=== PATIENT | male | born 1970 | race Caucasian/White ===

== ENCOUNTER → 2016-04-25 | Outpatient (CLI) | payer MEDICARE, MEDICAID | END | disposition home or self-care (01) | LOC: LAB.O 12:10 | PROVIDERS: ATTEND Internal Medicine | DX: N18.3 Chronic kidney disease, stage 3 (moderate) (principal); D50.9 Iron deficiency anemia, unspecified; E21.1 Secondary hyperparathyroidism, not elsewhere classified ==

== ENCOUNTER → 2016-07-12 | Outpatient (CLI) | payer MEDICARE, MEDICAID | END | disposition home or self-care (01) | LOC: LAB.O 09:10 | PROVIDERS: ATTEND Surgery Vascular Surgery | DX: E83.42 Hypomagnesemia (principal) ==

== ENCOUNTER → 2016-08-02 | Outpatient (CLI) | payer MEDICARE, MEDICAID | END | disposition home or self-care (01) | LOC: LAB.O 09:37 | PROVIDERS: ATTEND Internal Medicine | DX: N18.3 Chronic kidney disease, stage 3 (moderate) (principal); D50.9 Iron deficiency anemia, unspecified ==

== ENCOUNTER 2016-08-24 10:40 | Observation (INO) | payer MEDICARE, MEDICAID ==
[2016-08-24] MEDS ORDERED: MAGNESIUM SULFATE PREMIX 2GM 2 GM in PREMIX BAG 1 BAG IVPB ONE ×3 (12:25→21:52)
[2016-08-24] MEDS ORDERED: MAGNESIUM SULFATE PREMIX 2GM 50 ML IVPB ONE ×3 (12:42→22:10)
--- NOTE | 2016-08-24 13:25 | ED.PDOC ---
History of Present Illness - General Chief Complaint: General Stated Complaint: low magnesium and body cramps Time Seen by Provider: 08/24/16 11:00 Source: patient Exam Limitations: no limitations - History of Present Illness Initial Comments: The patient is a 46-year-old male presenting to the emergency room secondary toworsening muscle cramps over the last week. The patient states that this feels like the last time his calcium and magnesium were low. He has long- standing chronic renal insufficiency secondary to malignant hypertension. He is followed by Dr. Wilson and nephrology. He takes calcitriol, calcium acetate, and magnesium oxide normally. No palpitations. No chest pain. He is having roving muscle spasms. No syncope or near syncope. He is feeling a little bit weak. No vision changes. Timing/Duration: 1 week Severity: moderate Improving Factors: nothing Worsening Factors: nothing Associated Symptoms: loss of appetite, malaise, weakness Allergies/Adverse Reactions: Allergies Penicillins Allergy (Mild, Verified 08/24/16 11:09) Nitroglycerin IV Adverse Reaction (Severe, Uncoded 08/24/16 11:09) ceizure Home Medications: Ambulatory Orders Bumetanide 1 mg PO DAILY 02/10/15 Calcitriol [Rocaltrol] 0.25 mcg PO DAILY 02/10/15 Calcium Acetate (Phosphate Bin [Calphron] 667 mg PO TID 02/10/15 Carvedilol [Coreg] 25 mg PO BID 02/10/15 Doxepin HCl 50 mg PO BEDTIME 02/10/15 Esomeprazole Magnesium [Nexium] 40 mg PO DAILY 02/10/15 Fenofibrate Micronized [Lofibra] 134 mg PO DAILY 02/10/15 Indapamide 2.5 mg PO DAILY 02/10/15 Isosorbide Dinitrate [Dilatrate Sr] 40 mg PO TID 02/10/15 Magnesium Oxide 400 mg PO BID 02/10/15 Minoxidil [Loniten] 5 mg PO BID 02/10/15 Pravastatin Sodium [Pravachol] 80 mg PO BEDTIME 02/10/15 Sitagliptin Phosphate [Januvia] 100 mg PO DAILY 02/10/15 amLODIPine BESYLATE [Norvasc] 5 mg PO DAILY 02/10/15 hydrALAZINE HCl [(None)] 50 mg PO BID 02/10/15 Sulfa/Trimeth 800/160 (Ds) Tab [Bactrim DS Tab] 1 ea PO BID #14 tab 03/02/15 Ciprofloxacin-Ciprofloxacin Hc [Ciprofloxacin ER 500 mg] 1 tab PO BID #20 tab Ketorolac Tromethamine [Toradol Tabs] 10 mg PO Q6HRS PRN #20 tab 04/27/15 metroNIDAZOLE [Flagyl] 500 mg PO Q6HR #28 tab 04/27/15 Acetaminophen W/ Codeine [Tylenol w/Codeine 300-30 mg] 1 tab PO Q4HR PRN #30 tab 10/26/15 Review of Systems - Review of Systems Constitutional: States: malaise, weakness EENTM: States: no symptoms reported Respiratory: States: no symptoms reported Cardiology: States: no symptoms reported Gastrointestinal/Abdominal: States: nausea Genitourinary: States: no symptoms reported Musculoskeletal: States: muscle pain Skin: States: no symptoms reported Neurological: States: no symptoms reported, weakness - mild generalized Endocrine: States: no symptoms reported All other Systems: No Change from Baseline Past Medical History (General) - Patient Medical History Hx Seizures: Yes Hx Stroke: - unsure if has had one or not. Hx Dementia: No Hx Asthma: Yes Hx of COPD: No Hx Cardiac Disorders: Yes Hx Congestive Heart Failure: Yes Hx Pacemaker: No Hx Hypertension: Yes - Malignant HTN Hx Thyroid Disease: No Hx Diabetes: Yes - type 2 Hx Gastroesophageal Reflux: Yes Hx Renal Disease: Yes - failure Hx Cancer: No Hx of HIV: No Hx Hepatitis C: No Hx MRSA: No - Vaccination History Hx Tetanus, Diphtheria Vaccination: Yes Hx Influenza Vaccination: Yes Hx Pneumococcal Vaccination: Yes - 2015 - Social History Hx Tobacco Use: Yes Hx Alcohol Use: Yes Hx Substance Use: No Hx Substance Use Treatment: No Hx Depression: No Hx Physical Abuse: No Hx Emotional Abuse: No - Activities of Daily Living Hospice Agency (if applicable):: None - Female History Patient is a Female of Child Bearing Age (10 -59 yrs old): No Patient : No Family Medical History - Family History Father Living Status: Still Living Hx Family Hypertension: Yes Hx Family Diabetes: Yes Mother Living Status: Still Living Hx Family Hypertension: Yes Physical Exam - Physical Exam General Appearance: Alert, Comfortable, No apparent distress Eye Exam: bilateral normal Ears, Nose, Throat: hearing grossly normal, normal ENT inspection, normal pharynx Neck: full range of motion, supple Respiratory: chest non-tender, lungs clear, normal breath sounds, no respiratory distress, no accessory muscle use Cardiovascular/Chest: normal peripheral pulses, regular rate, rhythm, no edema Peripheral Pulses: radial,right: 2+, radial,left: 2+, dorsalis pedis,right: 2+, dorsalis pedis,left: 2+ Gastrointestinal/Abdominal: non tender, soft Rectal Exam: deferred Back Exam: normal inspection, no CVA tenderness, no vertebral tenderness Extremity: normal range of motion, non-tender, normal inspection, no pedal edema , normal capillary refill 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 I have discussed the patient with Dr. Adan. He is in agreement with replacing the magnesium first. As the patient is not having any evidence of cardiac arrhythmia, IV calcium is not recommended at this time. Continue calcium acetate. He has recommended calcitriol 2mcg twice a dayfor 3 days. The patient will be admitted for cardiac monitoring witha repeat of labs in the morning. He will likely require another dosing of magnesium as well in the morning. Again no evidence of arrhythmia at this time. - Results/Orders Results/Orders: 08/24/16 11:00 UA [URINALYSIS] Stat 08/24/16 13:13 Magnesium Sulfate Premix 2Gm 2 gm Premix Bag 1 bag IVPB ONCE 08/24/16 13:15 EKG Assessment ONCE EKG STAT 08/25/16 13:14 Calcitriol [Rocaltrol] 2 mcg PO ONCE ONE 08/25/16 13:15 EKG STAT Laboratory Results - last 24 hr 08/24/16 08/24/16 11:15 11:15 WBC 8.0 RBC 4.42 L Hgb 13.4 L Hct 40.1 L MCV 90.7 MCH 30.3 MCHC 33.3 RDW 12.7 Plt Count 183 MPV 8.1 Absolute Neuts (auto) 4.90 Absolute Lymphs (auto) 2.20 Absolute Monos (auto) 0.60 Absolute Eos (auto) 0.20 Absolute Basos (auto) 0.10 Neutrophils % 60.8 Lymphocytes % 27.7 Monocytes % 7.4 Eosinophils % 2.9 Basophils % 1.2 Sodium 138 Potassium 4.1 Chloride 102 Carbon Dioxide 24 Anion Gap 16.1 BUN 51 H Creatinine 3.60 H BUN/Creatinine Ratio 14.2 Random Glucose 170 H Serum Osmolality 293.3 Calcium 6.7 L* Magnesium < 0.8 L* Total Bilirubin 0.5 AST 22 ALT 16 Alkaline Phosphatase 47 Creatine Kinase 327 H* CK-MB (CK-2) 3.9 CK-MB (CK-2) % Not Reportable Troponin I < 0.02 Serum Total Protein 6.9 Albumin 3.7 Globulin 3.2 Albumin/Globulin Ratio 1.2 TSH 1.93 Departure - Departure Clinical Impression: Hypomagnesemia, Hypocalcemia Chronic renal failure Qualifiers: Chronic kidney disease stage: stage 4 (severe) Qualified Code(s): N18.4 - Chronic kidney disease, stage 4 (severe) Disposition: Admit Patient Home Medications: Ambulatory Orders Bumetanide 1 mg PO DAILY 02/10/15 Calcitriol [Rocaltrol] 0.25 mcg PO DAILY 02/10/15 Calcium Acetate (Phosphate Bin [Calphron] 667 mg PO TID 02/10/15 Carvedilol [Coreg] 25 mg PO BID 02/10/15 Doxepin HCl 50 mg PO BEDTIME 02/10/15 Esomeprazole Magnesium [Nexium] 40 mg PO DAILY 02/10/15 Fenofibrate Micronized [Lofibra] 134 mg PO DAILY 02/10/15 Indapamide 2.5 mg PO DAILY 02/10/15 Isosorbide Dinitrate [Dilatrate Sr] 40 mg PO TID 02/10/15 Magnesium Oxide 400 mg PO BID 02/10/15 Minoxidil [Loniten] 5 mg PO BID 02/10/15 Pravastatin Sodium [Pravachol] 80 mg PO BEDTIME 02/10/15 Sitagliptin Phosphate [Januvia] 100 mg PO DAILY 02/10/15 amLODIPine BESYLATE [Norvasc] 5 mg PO DAILY 02/10/15 hydrALAZINE HCl [(None)] 50 mg PO BID 02/10/15 Sulfa/Trimeth 800/160 (Ds) Tab [Bactrim DS Tab] 1 ea PO BID #14 tab 03/02/15 Ciprofloxacin-Ciprofloxacin Hc [Ciprofloxacin ER 500 mg] 1 tab PO BID #20 tab Ketorolac Tromethamine [Toradol Tabs] 10 mg PO Q6HRS PRN #20 tab 04/27/15 metroNIDAZOLE [Flagyl] 500 mg PO Q6HR #28 tab 04/27/15 Acetaminophen W/ Codeine [Tylenol w/Codeine 300-30 mg] 1 tab PO Q4HR PRN #30 tab 10/26/15 Decision To Admit - Decistion To Admit Decision to Admit Reason: Medical Nature Decision to Admit Date: 08/24/16 Decision to Admit Time: 13:28
[2016-08-24] MEDS ORDERED: CALCITRIOL 0.25 MCG CAP PO ONE (13:49)
--- NOTE | 2016-08-24 14:38 | HP ---
SUPERVISING PHYSICIAN: Wilfred Dyson M.D. CHIEF COMPLAINT: Muscle cramping all over. HISTORY OF PRESENT ILLNESS: This is a 46 year-old male patient with a significant history of chronic renal failure and hypocalcemia. He has had worsening muscle cramps over the last week at the point that he said he felt like he was cramping all over. In fact, his tongue was cramping and he felt like "his whole insides were cramping." In the Emergency Room, his magnesium was less than 0.8 and his calcium was 6.7. He was slightly anemic with an H&H of 13.4 and 40.1. Creatinine kinase was 327. Glucose was 170, BUN 51, creatinine 3.60. His normal creatinine is about 2.8 to 2.9. He was given 4 grams of magnesium in the Emergency Room. He usually sees Dr. Bryan Wilson, special events planner in [place] who is out of [facility]. Dr. Seun Adan was called and he recommended that he receive 4 grams of magnesium, recheck his magnesium level later tonight as well as giving him Calcitrol 2 mcg b.i.d. times 3 days. The Calcitrol was started in the Emergency Room. He was also given some fluids and I was called for admission. PAST MEDICAL HISTORY: 1. Diabetes mellitus type 2. 2. Congestive heart failure of unknown etiology. 3. Cardiomyopathy. 4. Chronic renal failure. 5. Hydrocephalus from an injury that was treated with Diamox. 6. Anemia of chronic disease. 7. Hypertension. 8. Chronic obstructive pulmonary disease. 9. Gastroesophageal reflux disease. PAST SURGICAL HISTORY: 1. Surgery for the hydrocephalus many years ago. 2. Abdominal surgery when he was a baby due to pyloric stenosis. 3. Right elbow surgery. 4. Tonsillectomy. 5. Fistula to his left arm for dialysis. HOME MEDICATIONS: Per the EMR and awaiting verification. ALLERGIES: PENICILLIN AND NITROGLYCERIN IN THE IV FORM. SOCIAL HISTORY: He is . He has 2 daughters. He lives at [facility]. He is disabled due to his kidney disease. He smoked for over 30 years but quit in 2013. He also had significant ethanol consumption, but he also quit drinking alcoholic beverages in 2013. He denies any illicit drug use. REVIEW OF SYSTEMS: Negative except as per History of Present Illness. PHYSICAL EXAMINATION: VITAL SIGNS: Temperature 96.7, pulse rate 97, blood pressure 149/100, respiratory rate 20, O2 sat is 97%. GENERAL: This is a 46 year-old male patient who is sitting up in his hospital bed. He is in no acute distress. HEENT: Normocephalic and atraumatic. Pupils are equal and reactive. Oropharynx is clear. NECK: Supple without mass. CHEST: Clear to auscultation bilaterally. There is equal rise and fall of the chest with inspiration and expiration. CARDIOVASCULAR: Regular rate and rhythm. ABDOMEN: Soft, nondistended, non-tender. Bowel sounds are positive. EXTREMITIES: No cyanosis, clubbing or edema. There is an AV fistula to the left forearm with a palpable thrill. NEUROLOGIC: He is awake, alert and oriented times three. LABORATORY: Labs and films are as per the History of Present Illness. ASSESSMENT: 1. Severe hypocalcemia. 2. Severe hypomagnesemia. 3. Acute on chronic renal failure. 4. Diabetes mellitus type 2. 5. Congestive heart failure of unknown etiology. No present echocardiogram for review. He is followed by Dr. Hankins in [place]. 6. Chronic obstructive pulmonary disease. 7. Cardiomyopathy. 8. Anemia of chronic disease. PLAN: We will admit the patient to the hospital. I will repeat his lab tonight at 9:00 PM to see if he needs further magnesium replacement. Will continue the Calcitrol as recommended by Dr. Adan 2 mcg p.o. b.i.d. times 3 doses. I put him on sliding scale insulin. Will restart his home medications. We are giving him Protonix for ulcer prophylaxis as well as Lovenox for DVT prophylaxis. Will do routine labs in the morning. Will monitor his electrolytes closely. He will be on the newcomer hostess. We will continue to monitor him closely and followup as needed. Dr. Dyson is the collaborating physician and available for consultation. #[id number]
[2016-08-24] MEDS: ISOSORBIDE DINITRATE 40 MG PO SCH ×2 (15:00→21:23)
[2016-08-24] MEDS ORDERED: IV SET AND CAP CHANGE INJ INJ SCH (17:00)
[2016-08-24] MEDS ORDERED: SODIUM CHLORIDE 0.9% (FLUSH) 10 ML SYG IV PRN (17:00)
[2016-08-24] MEDS ORDERED: ONDANSETRON INJ 4 MG/2 ML VIAL IV PRN (17:02)
[2016-08-24] MEDS ORDERED: ALBUTEROL SULFATE 2.5 MG/3 ML VIAL NEB PRN (17:02)
[2016-08-24] MEDS ORDERED: DEXTROSE 50% 25 GM/50 ML SYG IV PRN (17:06)
[2016-08-24] MEDS ORDERED: GLUCAGON INJ 1 MG VIAL SUBCU PRN (17:06)
[2016-08-24] MEDS ORDERED: ENOXAPARIN SODIUM 30 MG/0.3 ML SYG SUBCU SCH (17:30)
[2016-08-24] MEDS ORDERED: PANTOPRAZOLE SODIUM IV 40 MG VIAL IV SCH (17:30)
[2016-08-24] MEDS ORDERED: MAGNESIUM OXIDE 400 MG TAB ONE (19:58)
[2016-08-24] MEDS ORDERED: BUMETANIDE TAB 2 MG TAB ONE (19:58)
[2016-08-24] MEDS ORDERED: CARVEDILOL 12.5 MG TAB ONE (19:58)
[2016-08-24] MEDS ORDERED: VALSARTAN 80 MG TAB ONE (19:58)
[2016-08-24] MEDS ORDERED: ISOSORBIDE MONONITRATE (ISMO) 20 MG TAB ONE (19:59)
[2016-08-24] MEDS ORDERED: PRAVASTATIN SODIUM 20 MG TAB ONE (19:59)
[2016-08-24] MEDS: ALBUTEROL SULFATE 2.5 MG/3 ML VIAL NEB SCH (20:23)
[2016-08-24] MEDS: CALCITRIOL 0.25 MCG CAP PO SCH (20:36)
[2016-08-24] MEDS: SODIUM CHLORIDE 0.9% (FLUSH) 10 ML SYG IV SCH (20:39)
[2016-08-24] MEDS: CALCIUM ACETATE PO SCH (20:41)
[2016-08-24] MEDS ORDERED: NON-FORMULARY MEDICATION 1 EA MIS (Valsartan [Valsartan] 160 MG) PO SCH (21:00)
[2016-08-24] MEDS ORDERED: NON-FORMULARY MEDICATION 1 EA MIS (Carvedilol [Coreg] 25 MG) PO SCH (21:00)
[2016-08-24] MEDS ORDERED: MAGNESIUM OXIDE 400 MG PO SCH (21:00)
[2016-08-24] MEDS ORDERED: BUMETANIDE 2 MG PO SCH (21:00)
[2016-08-24] MEDS ORDERED: PRAVASTATIN SODIUM 80 MG PO SCH (21:00)
[2016-08-24] MEDS: INSULIN LISPRO 100 UNITS/ML PEN SUBCU SCH (21:44)
[2016-08-24] MEDS ORDERED: ALPRAZolam 0.5 MG TAB PO PRN (22:25)
[2016-08-25] MEDS ORDERED: PANTOPRAZOLE SODIUM IV 40 MG VIAL ONE (04:44)
[2016-08-25] MEDS ORDERED: PANTOPRAZOLE SODIUM IV 40 MG VIAL IV SCH (06:30)
[2016-08-25] MEDS: INSULIN LISPRO 100 UNITS/ML PEN SUBCU SCH ×3 (07:17→16:45)
--- NOTE | 2016-08-25 07:37 | RAD ---
Procedure: XR CHEST 2 VIEWS Exam Date: 08/25/2016 Ordering Provider: STEPHANIE DEL ROSARIO Clinical Indication: copd Comparison: 02/10/2015 Findings: Cardiac silhouette: Normal Pulmonary vasculature : Normal Mediastinal contour: Normal Aortic contour: Normal Focal lung consolidation: None Pleural effusion: None Pneumothorax: None Acute bony or soft tissue abnormality: None. Remote left-sided rib fractures. Impression: 1. No acute abnormalities in the chest. Electronically signed by: Bill Church MD 08/25/2016 7:36 AM CDT
[2016-08-25] MEDS ORDERED: BUMETANIDE TAB 2 MG TAB ONE (07:43)
[2016-08-25] MEDS ORDERED: SPIRONOLACTONE 25 MG TAB ONE (07:43)
[2016-08-25] MEDS ORDERED: CARVEDILOL 12.5 MG TAB ONE (07:46)
[2016-08-25] MEDS ORDERED: MAGNESIUM OXIDE 400 MG TAB ONE (07:47)
[2016-08-25] MEDS ORDERED: ENOXAPARIN SODIUM 30 MG/0.3 ML SYG SUBCU ONE (07:47)
[2016-08-25] MEDS ORDERED: amLODIPine BESYLATE 5 MG TAB ONE (07:47)
[2016-08-25] MEDS ORDERED: ISOSORBIDE MONONITRATE (ISMO) 20 MG TAB ONE (07:47)
[2016-08-25] MEDS ORDERED: VALSARTAN 80 MG TAB ONE (07:47)
[2016-08-25] MEDS: ALBUTEROL SULFATE 2.5 MG/3 ML VIAL NEB SCH ×2 (08:12→14:05)
[2016-08-25] MEDS: CALCIUM ACETATE PO SCH ×2 (08:54→15:00)
[2016-08-25] MEDS: ISOSORBIDE DINITRATE 40 MG PO SCH (08:56)
[2016-08-25] MEDS: MAGNESIUM OXIDE 400 MG TAB PO SCH ×2 (08:57→15:00)
[2016-08-25] MEDS: CALCITRIOL 0.25 MCG CAP PO SCH (08:58)
[2016-08-25] MEDS: SODIUM CHLORIDE 0.9% (FLUSH) 10 ML SYG IV SCH (08:59)
[2016-08-25] MEDS ORDERED: ENOXAPARIN SODIUM 30 MG/0.3 ML SYG SUBCU SCH (09:00)
[2016-08-25] MEDS ORDERED: SPIRONOLACTONE 25 MG TAB PO SCH (09:00)
[2016-08-25] MEDS ORDERED: amLODIPine BESYLATE 5 MG TAB PO SCH (09:00)
[2016-08-25] MEDS ORDERED: CARVEDILOL 12.5 MG TAB PO SCH (09:00)
[2016-08-25] MEDS ORDERED: BUMETANIDE TAB 2 MG TAB PO SCH (09:00)
[2016-08-25] MEDS ORDERED: FLUTICASONE/SALMETEROL 500/50 INH INH SCH (09:00)
[2016-08-25] MEDS ORDERED: VALSARTAN 80 MG TAB PO SCH (09:00)
--- NOTE | 2016-08-25 11:22 | PN ---
DATE: 08/25/16 SUPERVISING PHYSICIAN: Wilfred Dyson M.D. SUBJECTIVE: The patient is sitting up in bed watching television. He has no complaints of any shortness of breath, chest pain, muscle cramps, abdominal pain , nausea or vomiting. Actually states he feels "so much better than yesterday. " OBJECTIVE: He is afebrile. Heart rate is 71, blood pressure 142/89, respiratory rate 18, O2 sat is 96% on room air. RESPIRATORY: Clear to auscultation bilaterally. CARDIAC: Regular rate and rhythm. ABDOMEN: Soft, nondistended, non-tender. Bowel sounds are positive. EXTREMITIES: No cyanosis , clubbing or edema. NEUROLOGIC: He is awake, alert and oriented times three. LABORATORY: Sodium 139, potassium 4, chloride 104, carbon dioxide 23, BUN 48, creatinine 3.24 down from 3.52 yesterday. Glucose has been running between 112 to 170. Phosphorus is 5, magnesium last night was 1.5 and today is 1.8. Hemoglobin and hematocrit are stable at 13.1 and 39.2. Yesterday evening his calcium was 6.5 and today is 7.1. Chest x-ray shows no acute abnormalities in the chest. All other labs and films have been reviewed via the EMR. ASSESSMENT: 1. Severe hypocalcemia presently on high dose of Calcitrol per Dr. Adan's recommendations and slowly improving. 2. Severe hypomagnesemia requiring 6 mg of IV magnesium that has now normalized to 1.8. 3. Acute on chronic renal failure that is slowly improving. 4. Diabetes mellitus type 2. 5. Congestive heart failure of unknown etiology with no present echocardiogram for review. He is being followed by Dr. Hankins in [place]. 6. Chronic obstructive pulmonary disease. 7. Cardiomyopathy. 8. Anemia of chronic disease. PLAN: We will continue right supportive care. Last night when his calcium actually went down, I spoke with Dr. Adan via telephone and he said to continue his present dosing of Calcitrol which is 2 mcg b.i.d. for 3 days which his evening dose will be tomorrow afternoon. He recommended that we continue to monitor it, that it would come up slowly. We gave him 2 grams of magnesium last night, so his magnesium has normalized and his creatinine has improved. I have repeated lab for in the morning. If the patient's calcium continues to improve, he can be discharged tomorrow. 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 I will try to get him an appointment with Dr. Wilson toward the end of next week. He will also need to do lab on an outpatient level to check his CMP, phosphorus and magnesium, and he will need to do that about or Friday of this week. Otherwise we will continue to watch him closely and treat as medically indicated. Dr. Dyson is the supervising physician and available for consultation. #[id number] ALZP
[2016-08-25] MEDS ORDERED: MAGNESIUM SULFATE PREMIX 2GM 0 ML IVPB ONE (12:05)
[2016-08-25] MEDS ORDERED: CALCITRIOL 0.25 MCG CAP PO ONE (13:14)
[2016-08-25 17:31] VITALS: BP 138/90; TEMP 98; O2SAT 95
[2016-08-25] MEDS ORDERED: MAGNESIUM SULFATE PREMIX 2GM 2 GM in PREMIX BAG 1 BAG IVPB ONE (17:50)
[2016-08-25] MEDS ORDERED: MAGNESIUM SULFATE PREMIX 2GM 50 ML IVPB ONE (19:42)
[2016-08-25] MEDS ORDERED: CALCITRIOL 0.25 MCG CAP PO SCH (21:00)
[2016-08-25] MEDS ORDERED: PRAVASTATIN SODIUM 20 MG TAB PO SCH (21:00)
[2016-08-26] MEDS ORDERED: PANTOPRAZOLE SODIUM TAB 40 MG PO SCH (06:30)
--- NOTE | 2016-08-30 13:49 | DS ---
SUPERVISING PHYSICIAN: Wilfred Dyson MD DISCHARGE DIAGNOSIS: 1. Severe hypocalcemia presently on high dose of Calcitrol per Dr. Adan's recommendation, improving. 2. Severe hypomagnesemia requiring 6 mg of IV magnesium, now normalized. 3. Acute on chronic renal failure, slowly improving. 4. Diabetes mellitus, type 2. 5. Congestive heart failure of unknown etiology presently being followed by Dr. Hankins in [place]. 6. Chronic obstructive pulmonary disease. 7. Cardiomyopathy. 8. Anemia of chronic disease. HISTORY OF PRESENT ILLNESS: This is a 46-year-old, male patient who presented to the Emergency Room on the date of admission with severe muscle cramps over his entire body that had been going on for about a week. He has a significant history of renal failure and hypocalcemia. He is actually on daily Calcitrol. In the Emergency Room, his magnesium was less than 0.8 and his calcium was 6.7. He was slightly anemic with an hemoglobin and hematocrit of 13.4 and 40.1. Creatinine kinase was 327. Glucose was 170, BUN 51, creatinine 3.6. His normal creatinine is about 2.8 to 2.9. He was given 4 grams of magnesium in the Emergency Room. His banana carrier is Dr. Bryan Wilson, but he was out of town, so Dr. Seun Adan, banana carrier in [place], was contacted and he recommended that he receive 4 grams of magnesium, recheck his magnesium level and give Calcitrol 2 mcg b.i.d. times 3 days, then to resume his previously dosed Calcitrol. The Calcitrol was started in the Emergency Room and he was admitted to the hospital. HOSPITAL COURSE: After receiving his magnesium and initial 3 doses of Calcitrol , his symptoms improved although his followup lab showed that his calcium dropped to 6.5 and his second magnesium was 1.5. He was given an additional dose of 2 grams of magnesium and this morning, magnesium was 1.8. His calcium this morning had improved to 7.1. Initially, we had planned to monitor it over the next 48 hours, but his symptoms improved so much that he requested that he go home. I talked to the patient at length about leaving the hospital and that his electrolytes were so out of balance that he needed close monitoring. His daughter was home from [facility] and she was leaving later this evening. The patient agreed to have his electrolytes checked on 08/29/06 or 08/30/16 for close followup and he also has an appointment with Dr. Wilson early next week. Reluctantly, I agreed to discharge as long as he has close followup with his electrolytes as well as he is to return to the hospital if he has any further symptoms. Prior to discharge, his magnesium was 1.7 and he received 2 more grams of magnesium. His calcium had improved to 7.8 and on discharge, he was actually given enough Calcitrol to complete the 2 grams b.i.d. for 3 total days. DISCHARGE PLAN: The patient is to be discharged home in stable condition. He is to resume his previous medications with the exception of the dosing of Calcitrol as stated previously. He is to have his electrolytes plus magnesium checked on 08/29/16 or 08/30/16 and was given an order to come to the hospital to do so. He is to followup with Dr. Wilson next week and to return to the hospital with any further complaints or problems. He is to resume his previous diet and previous activity. DISCHARGE MEDICATIONS: 1. Nexium. 2. Pravachol. 3. Magnesium oxide. 4. Amlodipine. 5. Calcium acetate. 6. Calcitrol. 7. Bumex. 8. Carvedilol. 9. Fluticasone salmeterol. 10. Albuterol. 11. Valsartan. 12. Fluticasone nasal 13. Spironolactone. 14. Alprazolam. 15. Isosorbide. 16. Hydralazine. 17. Colchicine. 18. Calcitrol. 19. Uloric. Dr. Dyson is the collaborating physician and available for consultation. #[id number] [facility]
== END 2016-08-25 20:55 | disposition home or self-care (01) ==
LOC: ER 10:40 → MS 11:00 → UNDOADMOB 14:33 → MS 14:33 → UNDOADMOB 14:34 → MS 14:34 → INTOOBSV 14:34 → MS 08-25 18:00 → UNDOADMOB 08-25 18:00 → UNDODISOB 08-25 20:55
PROVIDERS: ADMIT Nurse Practitioner Acute Care; ATTEND Nurse Practitioner Acute Care
DX: E83.51 Hypocalcemia (principal); E83.42 Hypomagnesemia; N17.9 Acute kidney failure, unspecified; I13.0 Hypertensive heart and chronic kidney disease with heart failure and stage 1 through stage 4 chronic kidney disease, or unspecified chronic kidney disease; N18.4 Chronic kidney disease, stage 4 (severe); E11.22 Type 2 diabetes mellitus with diabetic chronic kidney disease; I50.9 Heart failure, unspecified; J44.9 Chronic obstructive pulmonary disease, unspecified; I42.9 Cardiomyopathy, unspecified; D63.1 Anemia in chronic kidney disease; G91.3 Post-traumatic hydrocephalus, unspecified; K21.9 Gastro-esophageal reflux disease without esophagitis; Z79.84 Long term (current) use of oral hypoglycemic drugs; Z79.899 Other long term (current) drug therapy; Z88.0 Allergy status to penicillin; Z88.8 Allergy status to other drugs, medicaments and biological substances; Z87.891 Personal history of nicotine dependence; Z82.49 Family history of ischemic heart disease and other diseases of the circulatory system; Z83.3 Family history of diabetes mellitus
CPT/HCPCS: 36415 ×7; 36416 ×7; 71020; 80053 ×4; 81001; 82550 ×2; 82553; 82948 ×4; 83735 ×4; 84100 ×2; 84443; 84484; 85025 ×2; 93005; 94640 ×3; 94664; 94760 ×6; 96365; 96366 ×3; 96372 ×2; 96375; 96376; 99284; G0378; J1650 ×2; J3475 ×4; J7611 ×3

== ENCOUNTER → 2017-05-09 | Outpatient (CLI) | payer MEDICARE, MEDICAID | LOC: LAB.O 12:29 | PROVIDERS: ATTEND Internal Medicine | DX: N18.3 Chronic kidney disease, stage 3 (moderate) (principal) ==

== ENCOUNTER → 2017-09-23 | Outpatient (CLI) | payer MEDICARE, MEDICAID | LOC: LAB.O 10:28 | PROVIDERS: ATTEND Internal Medicine | DX: N18.4 Chronic kidney disease, stage 4 (severe) (principal) ==

== ENCOUNTER → 2018-03-05 | Outpatient (CLI) | payer MEDICARE, MEDICAID | LOC: LAB.O 11:10 | PROVIDERS: ATTEND Internal Medicine | DX: N18.3 Chronic kidney disease, stage 3 (moderate) (principal); D50.9 Iron deficiency anemia, unspecified; E11.22 Type 2 diabetes mellitus with diabetic chronic kidney disease; E21.1 Secondary hyperparathyroidism, not elsewhere classified; E78.00 Pure hypercholesterolemia, unspecified ==

== ENCOUNTER → 2018-03-17 | Outpatient (CLI) | payer MEDICARE, MEDICAID | LOC: LAB.O 11:54 | PROVIDERS: ATTEND Family Medicine | DX: E78.2 Mixed hyperlipidemia (principal); E11.9 Type 2 diabetes mellitus without complications; I10 Essential (primary) hypertension ==

== ENCOUNTER → 2018-06-18 | Outpatient (CLI) | payer MEDICARE, MEDICAID | LOC: LAB.O 09:41 | PROVIDERS: ATTEND Family Medicine | DX: E78.2 Mixed hyperlipidemia (principal); I10 Essential (primary) hypertension; E11.9 Type 2 diabetes mellitus without complications ==

== ENCOUNTER → 2018-09-02 | Outpatient (CLI) | payer MEDICARE, MEDICAID | LOC: LAB.O 11:01 | PROVIDERS: ATTEND Internal Medicine | DX: N18.4 Chronic kidney disease, stage 4 (severe) (principal); E83.42 Hypomagnesemia; E83.39 Other disorders of phosphorus metabolism ==

== ENCOUNTER → 2018-10-28 | Outpatient (CLI) | payer MEDICARE, MEDICAID | LOC: LAB.O 15:27 | PROVIDERS: ATTEND Internal Medicine | DX: N18.3 Chronic kidney disease, stage 3 (moderate) (principal); E21.1 Secondary hyperparathyroidism, not elsewhere classified; D80.9 Immunodeficiency with predominantly antibody defects, unspecified ==

== ENCOUNTER → 2019-07-19 | Outpatient (CLI) | payer MEDICARE, MEDICAID | LOC: LAB.O 11:08 | PROVIDERS: ATTEND Internal Medicine | DX: N18.3 Chronic kidney disease, stage 3 (moderate) (principal); E83.42 Hypomagnesemia ==

== ENCOUNTER → 2019-09-16 | Outpatient (CLI) | payer MEDICARE, MEDICAID | LOC: LAB.O 17:44 | PROVIDERS: ATTEND Internal Medicine | DX: E83.42 Hypomagnesemia (principal); N18.3 Chronic kidney disease, stage 3 (moderate) ==

== ENCOUNTER → 2019-09-24 | Outpatient (CLI) | payer MEDICARE, MEDICAID | LOC: LAB.O 11:50 | PROVIDERS: ATTEND Internal Medicine | DX: N18.6 End stage renal disease (principal) ==

== ENCOUNTER → 2019-11-25 | Outpatient (CLI) | payer MEDICARE, MEDICAID | LOC: LAB.O 09:41 | PROVIDERS: ATTEND Internal Medicine | DX: N18.30 Chronic kidney disease, stage 3 unspecified (principal); E83.42 Hypomagnesemia; E83.30 Disorder of phosphorus metabolism, unspecified; D64.9 Anemia, unspecified ==

== ENCOUNTER → 2020-04-24 | Outpatient (CLI) | payer MEDICARE, MEDICAID | LOC: YCFC.O 15:45 | PROVIDERS: ATTEND Nurse Practitioner Family | DX: Z11.59 Encounter for screening for other viral diseases (principal) ==